=== PATIENT | female | born 1935 | race Two or more races ===

== ENCOUNTER 2018-05-27 14:15 | Emergency (ER) | payer OTHER ==
[~2018-05-27] VITALS: Ht 172.7 cm; Wt 62.6 kg
[~2018-05-27 14:15] MED LIST: ALPR0.25 PO; ZOLP5TAB2 PO
--- NOTE | 2018-05-27 14:20 | NUR ---
PT SACHI FROM HOME WHO CAME IN DUE TO DIZZINESS FOR THE PAST 2 DAYS. ALERT AND ORIENTED X3, VERBALLY RESPONSIVE. SON AT BEDSIDE. ON ROOM AIR AND TOLERATED WELL. WILL CONTINUE TO MONITOR ACCORDINGLY.
--- NOTE | 2018-05-27 14:25 | NUR ---
DR. WHITLOCK AT BEDSIDE FOR EVAL.
[2018-05-27] MEDS: IV NS 0.9% 1,000 ML BAG IV ONE (15:26)
[2018-05-27] MEDS ORDERED: CEFTRIAXONE 1GM BAG (ER ONLY) 1 GM/50 ML PIGGYBACK IV ONE (15:30)
[2018-05-27] MEDS ORDERED: CEFTRIAXONE 1 G in IV D5W 50 ML IV ONE (15:30)
[2018-05-27 15:44] LABS: BASOPHILS # (AUTO) 0.1 /CMM (0.0-0.2); BASOPHILS % (AUTO) 1.7 % (0.0-2.0); EOSINOPHILS % (AUTO) 1.3 % (0.0-6.0); HEMATOCRIT 43 % (33-45); HEMOGLOBIN 14.9 g/dL (11.5-14.8); LYMPHOCYTES # (AUTO) 0.7 /CMM (0.8-4.8); LYMPHOCYTES % (AUTO) 11.3 % (20.0-44.0); MEAN CORPUSCULAR HGB CONC 34 g/dl (31.0-36.0); MEAN CORPUSCULAR VOLUME 87 fL (82-100); MONOCYTES # (AUTO) 0.5 /CMM (0.1-1.30); NEUTROPHILS % (AUTO) 77.7 % (43.0-81.0); PLATELET COUNT (AUTO) 252 /CMM (150-450); RDW COEFFICIENT OF VARIATION 13.2 (11.5-15.0); RED BLOOD CELL COUNT(AUTO) 4.99 MIL/uL (4.0-5.2); WHITE BLOOD COUNT (AUTO) 6.4 K/uL (4.3-11.0)
[2018-05-27 15:56] LABS: CALCIUM, SERUM 9.5 mg/dL (8.5-10.1); CARBON DIOXIDE 32 mmol/L (21-32); CHLORIDE 102 mmol/L (98-107); CREATININE 0.9 mg/dL (0.6-1.3); GLUCOSE 88 mg/dL (74-106); POTASSIUM 4.3 mmol/L (3.5-5.1); SODIUM SERUM 137 mmol/L (136-145); UREA NITROGEN, BLOOD 19 mg/dL (7-18)
[2018-05-27 16:03] LABS: ALANINE AMINOTRANSFERASE 19 U/L (12-78); ALBUMIN 3.6 g/dL (3.4-5.0); ALKALINE PHOSPHATASE 61 U/L (46-116); ASPARTATE AMINOTRANSFERASE 17 U/L (15-37); BILIRUBIN,DIRECT 0.1 mg/dL (0.0-0.2); TOTAL PROTEIN, SERUM 7.1 g/dL (6.4-8.2)
[2018-05-27 16:04] LABS: INR 0.9 (0.85-1.15)
[2018-05-27 16:07] LABS: TROPONIN I < 0.017 ng/mL (0.00-0.056)
[2018-05-27 16:08] LABS: APPEARANCE,URINE Clear (CLEAR); BILIRUBIN,URINE Negative (NEGATIVE); BLOOD, URINE Small Ery/uL (NEGATIVE); COLOR,URINE Yellow (YELLOW); KETONES,URINE Negative (NEGATIVE); LEUKOCYTE ESTERASE ,URINE Small (NEGATIVE); NITRITE, URINE Negative (NEGATIVE); PROTEIN,URINE Negative (NEGATIVE); UGLUCOSE Negative (NEGATIVE); UROBILINOGEN,URINE 0.2 EU/dL (0.2)
[2018-05-27 16:13] LABS: BACTERIA,URINE Few /HPF (None Seen); SQUAMOUS EPITHELIAL CELL,UR Few /HPF (None Seen)
[2018-05-27] MEDS ORDERED: hydrALAZINE HCL IV 20 MG VIAL ONE (17:38)
[2018-05-27] MEDS: hydrALAZINE HCL IV 20 MG VIAL IV ONE (17:40)
--- NOTE | 2018-05-27 18:10 | NUR ---
CALLED [facility] SPOKE WITH GILBERT TO OPEN CASE, EXCPECTING A CALL BACK FROM [facility]
--- NOTE | 2018-05-27 18:14 | NUR ---
DR NIX FROM [facility] CALLED, ON THE PHONE WITH DR WHITLOCK.
--- NOTE | 2018-05-27 18:45 | NUR ---
PT ADMIT TO REGINA CADENA RN FOR REPORT IS [phone] ETA FOR [facility] 1945 HOURS.
--- NOTE | 2018-05-27 19:05 | NUR ---
ADMIT TO MD VALIENTE
[2018-05-27] MEDS: CEFTRIAXONE 1GM BAG (ER ONLY) 1 GM/50 ML PIGGYBACK IV ONE (19:23)
--- NOTE | 2018-05-27 19:37 | NUR ---
CALLED [facility] AND REPORT GIVEN TO VINCENZO TO CONTINUE CARE AT [facility].
[2018-05-27 20:21] VITALS: BP 164/80
--- NOTE | 2018-05-27 20:21 | NUR ---
REPORT GIVEN TO EMS. WILL D/C FROM SYSTEM
== END 2018-05-27 20:23 | disposition short-term general hospital (02) ==
LOC: ER 14:19
DX: I16.0 Hypertensive urgency (principal); N39.0 Urinary tract infection, site not specified; R42 Dizziness and giddiness
CPT/HCPCS: 36415; 70450; 71045; 80048; 80076; 81001; 84484; 85025; 85730; 87086; 93005; 96361; 96365; 96375; 99285; A4606; J0360; J0696; J7030; J7060; 81000-TC; Z7610

== ENCOUNTER 2019-10-30 18:02 | Emergency (ER) | payer OTHER ==
[~2019-10-30] VITALS: Ht 165.1 cm; Wt 70.8 kg
--- NOTE | 2019-10-30 18:30 | NUR ---
BIB RA C/O ACTING DIFFERENT PER CAREGIVER S/P fall. PATIENT A/OX2-3, BREATHING EVEN AND UNLABORED, NO SOB NOTED, ATTACHED TO THE PROGRAM DEVELOPER. NO DISTRESS NOTED.
[2019-10-30 18:40] LABS: BASOPHILS % (AUTO) 0.5 % (0.0-2.0); HEMATOCRIT 43 % (33-45); HEMOGLOBIN 14.4 g/dL (11.5-14.8); LYMPHOCYTES # (AUTO) 0.7 /CMM (0.8-4.8); LYMPHOCYTES % (AUTO) 9.3 % (20.0-44.0); MEAN CORPUSCULAR HGB CONC 34 g/dl (31.0-36.0); MEAN CORPUSCULAR VOLUME 88 fL (82-100); MONOCYTES # (AUTO) 0.4 /CMM (0.1-1.30); MONOCYTES % (AUTO) 6.3 % (2.0-12.0); NEUTROPHILS # (AUTO) 5.9 /CMM (1.8-8.9); NEUTROPHILS % (AUTO) 82.9 % (43.0-81.0); PLATELET COUNT (AUTO) 225 /CMM (150-450); RED BLOOD CELL COUNT(AUTO) 4.92 MIL/uL (4.0-5.2); WHITE BLOOD COUNT (AUTO) 7.1 K/uL (4.3-11.0)
[2019-10-30] MEDS: IV NS 0.9% 500 ML BAG IV ONE (18:50)
[2019-10-30 18:51] LABS: CALCIUM, SERUM 9.3 mg/dL (8.5-10.1); CARBON DIOXIDE 31 mmol/L (21-32); CHLORIDE 103 mmol/L (98-107); GLUCOSE 95 mg/dL (74-106); POTASSIUM 4.5 mmol/L (3.5-5.1); SODIUM SERUM 138 mmol/L (136-145); UREA NITROGEN, BLOOD 22 mg/dL (7-18)
--- NOTE | 2019-10-30 18:51 | NUR ---
PATIENT TAKEN TO CT.
[2019-10-30 18:57] LABS: ALANINE AMINOTRANSFERASE 14 U/L (12-78); ALBUMIN 3.6 g/dL (3.4-5.0); ALKALINE PHOSPHATASE 69 U/L (46-116); ASPARTATE AMINOTRANSFERASE 15 U/L (15-37); BILIRUBIN,DIRECT 0.1 mg/dL (0.0-0.2); BILIRUBIN,TOTAL 0.7 mg/dL (0.2-1.0); TOTAL PROTEIN, SERUM 6.9 g/dL (6.4-8.2)
--- NOTE | 2019-10-30 19:25 | NUR ---
REPORT GIVEN TO SHON STEWART FOR RAKESH.
--- NOTE | 2019-10-30 19:29 | NUR ---
CALLED REGINA YO
[2019-10-30 19:31] VITALS: BP 153/82
--- NOTE | 2019-10-30 19:31 | NUR ---
PT'S DAUGHTER INFORMATION : CAIO PHONE #: REGINA OLIVAS.
[2019-10-30] MEDS ORDERED: LEVETIRACETAM (500MG) 500 MG/5 ML VIAL IV ONE ×2 (20:13→20:31)
[2019-10-30] MEDS: LEVETIRACETAM (500MG) 1,000 MG in IV NS 0.9% 100 ML IV SCH (20:29)
--- NOTE | 2019-10-30 23:18 | NUR ---
DR. SHAH ON THE PHONE WITH REGINA DAMICO
--- NOTE | 2019-10-30 23:40 | NUR ---
PATIENT GIVEN A BED CRENSHAW FOR URINATION. PATIENT ABLE TO ASSIST. PATIENT CLEANED.
--- NOTE | 2019-10-30 23:51 | NUR ---
PT WILL BE TRANSFERRED TO [facility] ER ACCEPTING MD: DR. FLORES NUMBER FOR REPORT: [phone] [facility] TRANSP[facility] WITH [facility] ETA [id number]
--- NOTE | 2019-10-31 00:32 | NUR ---
REPORT GIVEN TO LEDA STEWART FOR RAKESH.
== END 2019-10-31 00:34 | disposition short-term general hospital (02) ==
LOC: ER 18:15
DX: S06.5X0A Traumatic subdural hemorrhage without loss of consciousness, initial encounter (principal); S50.11XA Contusion of right forearm, initial encounter; I10 Essential (primary) hypertension; M32.8 Other forms of systemic lupus erythematosus; G20 Parkinson's disease; F02.80 Dementia in other diseases classified elsewhere, unspecified severity, without behavioral disturbance, psychotic disturbance, mood disturbance, and anxiety; Z96.642 Presence of left artificial hip joint; Z79.899 Other long term (current) drug therapy; W19.XXXA Unspecified fall, initial encounter; Y93.89 Activity, other specified; Y92.89 Other specified places as the place of occurrence of the external cause; Y99.8 Other external cause status
CPT/HCPCS: 36415; 70450 ×2; 71045; 72125; 80048; 80076; 84484; 85025; 85730; 93005; 96365; 99285; J1953 ×3; J7030 ×3; J7040